=== PATIENT | female | born 1940 | race Hispanic/Latino ===

== ENCOUNTER 2017-06-02 12:57 | Outpatient (CLI) | payer MEDICARE ==
--- NOTE | 2017-06-02 16:22 | CT ---
CT ABDOMEN AND PELVIS NONCONTRAST: Date: 06/02/17 HISTORY: Kidney stone. FINDINGS: No comparison. Each renal collecting system and ureter are decompressed. An oval 0.5 cm calculus is present within a nondilated stas at the posterior aspect of the right kidney. Other calcifications associated with each kidney are favored to be arterial in origin. Urinary bladder is incompletely distended. Lack of contrast limits evaluation for other abnormalities. Liver is diffusely hypodense. There is p rominent calcification throughout the arterial structures. Degenerative changes involve lumbar spine . 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 Diverticula arise from the colon wit hout adjacent inflammation. IMPRESSION: 1. Nonobstructing 5 mm left renal calculus. 2. Hepatic steatosis. 3. Atherosclerosis. POS: [facility]
== END 2017-06-02 12:58 | disposition home or self-care (01) ==
LOC: SCSCT 12:57
PROVIDERS: ATTEND Urology
DX: N20.0 Calculus of kidney (principal); K76.0 Fatty (change of) liver, not elsewhere classified; I70.90 Unspecified atherosclerosis; Z86.19 Personal history of other infectious and parasitic diseases
CPT/HCPCS: 74176

== ENCOUNTER 2018-01-23 11:15 | Outpatient (CLI) | payer MEDICARE ==
--- NOTE | 2018-01-23 13:52 | ULT ---
BILATERAL RENAL ULTRASOUND COMPLETE: HISTORY: A 77-year-old female with a history of renal calculi. COMPARISON: CT from 06/02/2017. FINDINGS: The right kidney measures 12.2 x 4.3 x 4.2 cm. The left kidney measures 11.4 x 5.2 x 5.9 cm. No renal hydronephrosis. No perinephric process. The bladder is unremarkable. There is a 0.6 x 1.2 x 1.4 cm area of calcification in the right lower pole, which, based on the prior CT scan, probably represents a prominent renal vascular calcification. Two foci of calcifications are noted in the lef t kidney, one in the mid kidney measuring 0.5 x 0.6 cm and in the upper portion of the left kidney, 0 .7 x 1 cm. IMPRESSION: 1. No renal hydronephrosis. 2. Calcific foci in both kidneys. 3. Prominent renal vascular calcifications are noted on the prior CT, which may well account for kingsley e or most of these calcific foci within both kidneys. 4. Unremarkable bladder. POS: [facility]
== END 2018-01-23 11:16 | disposition home or self-care (01) ==
LOC: SCSULT 11:15
PROVIDERS: ATTEND Urology
DX: N20.0 Calculus of kidney (principal); N39.46 Mixed incontinence; R93.421 Abnormal radiologic findings on diagnostic imaging of right kidney; R93.422 Abnormal radiologic findings on diagnostic imaging of left kidney
CPT/HCPCS: 76770

== ENCOUNTER 2018-02-20 11:03 | Outpatient (CLI) | payer MEDICARE ==
--- NOTE | 2018-02-20 13:35 | CT ---
ABDOMEN CT WITHOUT CONTRAST PELVIC CT WITHOUT CONTRAST: Date: 02/20/18 COMPARISON: 06/02/17. TECHNIQUE: Abdomen and pelvic CT performed without IV or oral contrast. Coronal reformatted images are submitted for interpretation. FINDINGS: ABDOMEN CT: Lung bases are clear. There are coronary artery calcifications. Heart size is normal. No pericardial fluid. Visualized aorta has an overall normal caliber. There is atherosclerosis. No periaortic fat st randing. Limited evaluation of the solid organs by the lack of IV contrast. Hypoattenuation of the liver sugge sts hepatic steatosis. Grossly, the remaining solid organs are unremarkable. Gallbladder is unremarkable. No gastrohepatic, retrocrural, or periportal lymphadenopathy. No mesenteric mass, lymphadenopathy, free air, or free fluid. Limited evaluation of the alimentary canal due to lack of oral contrast. No evidence of small bowel o bstruction. Ileocecal junction is normal. Normal caliber appendix. Scattered fecal material and diver ticula throughout the colon. No evidence of obstruction or acute inflammation of the colon. Bilaterally, no evidence of obstructing calculi. There are vascular calcifications and parenchymal ca lcifications noted in the kidneys. Bilaterally, no evidence of hydronephrosis or significant perineph manuel fat stranding. Bilateral ureters have a normal caliber. No hydroureter, periureteral fat strandin g, or ureterolithiasis. PELVIC CT: No acute abnormality in the pelvis. Uterus and adnexal structures are unremarkable. Prosthetic device in the upper vaginal canal is again noted. No lytic or blastic lesions of the osseous structures. IMPRESSION: 1. No evidence of obstructive uropathy. 2. Stable parenchymal calcification in the left kidney. Calcification measure 5.0 mm. POS: [facility]
== END 2018-02-20 11:04 | disposition home or self-care (01) ==
LOC: SCSCT 11:03
PROVIDERS: ATTEND Urology
DX: N20.0 Calculus of kidney (principal); N28.89 Other specified disorders of kidney and ureter
CPT/HCPCS: 74176

== ENCOUNTER 2018-06-25 14:52 | Outpatient (CLI) | payer MEDICARE ==
--- NOTE | 2018-06-25 16:14 | MMO ---
BILATERAL SCREENING MAMMOGRAM: DATE: 06/25/18 HISTORY: 77-year-old female for screening mammography. COMPARISON: 05/17/17, 01/29/16, 07/21/15, and 01/26/15. FINDINGS: Bilateral MLO and CC views of the breasts show scattered fibroglandular breast tissue. Benign-appeari ng calcifications are seen in both breasts. There is no evidence of suspicious mass, suspicious clust er of microcalcifications, or area of architectural distortion. Interpretation of this mammogram was performed with the assistance of computer-aided detection. IMPRESSION: BIRADS 2: Benign Finding(s) Annual screening mammography is recommended. POS: [facility]
== END 2018-06-25 14:53 | disposition home or self-care (01) ==
LOC: SCSMAMMO 14:52
PROVIDERS: ATTEND Family Medicine
DX: Z12.31 Encounter for screening mammogram for malignant neoplasm of breast (principal)
CPT/HCPCS: 77067

== ENCOUNTER 2018-09-25 15:26 | Outpatient (CLI) | payer MEDICARE ==
--- NOTE | 2018-09-25 18:42 | RAD ---
ABDOMEN ONE VIEW: 09/25/18 HISTORY: N20.0 - renal stone. There is evidence for arterial vascular calcification including bilateral renal vascular calcificatio ns. Small faint stones certainly cannot be excluded on this study. There are some vascular calcificat ions in the pelvis. IMPRESSION: Prominent vascular calcifications including renal vascular calcifications. There is one faint opacity overlying the left kidney which could represent a faint calculus although difficult to say with cert ainty because of the extensive renal vascular calcifications. POS: [facility]
== END 2018-09-25 15:27 | disposition home or self-care (01) ==
LOC: SCSRAD 15:26
PROVIDERS: ATTEND Urology
DX: N20.0 Calculus of kidney (principal); N28.89 Other specified disorders of kidney and ureter
CPT/HCPCS: 74018

== ENCOUNTER 2019-01-14 13:35 | Outpatient (CLI) | payer MEDICARE ==
--- NOTE | 2019-01-14 14:52 | BD ---
BONE DENSITOMETRY USING DEXA: HISTORY: Postmenopausal screening for osteoporosis. FINDINGS: Lumbar Spine: BMD (g/cm2) L1 0.806 T-Score: -1.7 Z-Score: 0.5 L2 0.843 T-Score: -1.7 Z-Score: 0.8 L3 0.868 T-Score: -2.0 Z-Score: 0.6 L4 0.829 T-Score: -2.1 Z-Score: 0.5 L1-L4 0.837 T-Score: -1.9 Z-Score: 0.6 Femoral Neck: 0.762 T-Score: -0.8 Z-Score: 1.2 Total Femur: 0.938 T-Score: 0.0 Z-Score: 1.7 The 10-year fracture risk for a major osteoporotic fracture is 5.2% and for a hip fracture is 0.7%. Impression: Osteopenia. POS: [facility]
== END 2019-01-14 13:36 | disposition home or self-care (01) ==
LOC: BICMAMMO 13:35
PROVIDERS: ATTEND Internal Medicine Rheumatology
DX: M81.0 Age-related osteoporosis without current pathological fracture (principal); M85.89 Other specified disorders of bone density and structure, multiple sites
CPT/HCPCS: 77080

== ENCOUNTER 2019-09-26 12:59 | Outpatient (CLI) | payer MEDICARE ==
--- NOTE | 2019-09-26 14:06 | ULT ---
ULTRASOUND RETROPERITONEUM COMPLETE: (RENAL) 09/26/2019 HISTORY: A 78-year-old female with calculus of kidney. FINDINGS: Right kidney: 12.5 x 6 x 5.5 cm Left kidney: 11.5 x 5 x 5 cm No hydronephrosis bilaterally. No moderate-sized or large solid or cystic renal lesion identified. An approximately 10 mm hyperechoic focus in the left renal lower pole is probably a small calculus. There are at least two additional punctate echogenic foci, one at the right upper pole at approximate ly 0.5 cm and one in the right lower pole at approximately 0.5 cm. These may or may not represent sukumar culi. The bladder arango are thin and normal. Pre-void bladder volume is 240 mL. IMPRESSION: 1. No hydronephrosis. 2. At least one left renal lower pole calculus. 3. For additional calculi, a noncontrast CT would be much more accurate than ultrasound. XIAO Lebron POS: [facility]
--- NOTE | 2019-09-26 14:07 | RAD ---
ABDOMEN 1 VIEW: HISTORY: Followup kidney stones. FINDINGS: There appears to be fairly extensive bilateral renal arteriovascular calcifications. It would be dif ficult to exclude a small calculus. IMPRESSION: Bilateral renal arteriovascular calcifications. No overt calculus, although small calculi are certai nly to be not visualized. POS: [facility]
[2019-09-26 16:19] LABS: Hemoglobin A1c 9.5 % (4.0-6.0)
[2019-09-26 16:24] LABS: Anion Gap 9 mmol/L (10-20); BUN (Urea Nitrogen) 35 mg/dL (9.8-20.1); Calc. Creatinine Clearance 0 mL/min (70-130); Carbon Dioxide 32 mmol/L (23-31); Chloride 102 mmol/L (98-107); Estimated GFR-MDRD 38; Glucose 146 mg/dL (83-110); Potassium 5.2 mmol/L (3.5-5.1); Sodium 138 mmol/L (136-145)
== END 2019-09-26 13:00 | disposition home or self-care (01) ==
LOC: SCSULT 12:59
PROVIDERS: ATTEND Urology
DX: N20.0 Calculus of kidney (principal); E11.9 Type 2 diabetes mellitus without complications; N39.46 Mixed incontinence; I70.1 Atherosclerosis of renal artery
CPT/HCPCS: 36415; 74018; 76770; 80048; 83036

== ENCOUNTER 2021-08-12 14:44 | Outpatient (CLI) | payer MEDICARE | END 2021-08-12 14:45 | disposition home or self-care (01) | LOC: SCSRAD 14:44 | PROVIDERS: ATTEND Urology | DX: N20.0 Calculus of kidney (principal); N39.46 Mixed incontinence; N18.30 Chronic kidney disease, stage 3 unspecified | CPT/HCPCS: 36415; 74018; 80048; 83036 ==

== ENCOUNTER 2021-09-21 23:28 | Inpatient (IN) | payer MEDICARE ==
[2021-09-21] MEDS ORDERED: niCARdipine 25 MG/10 ML VIAL ONE (23:41)
[2021-09-22] MEDS ORDERED: SUGAMMADEX SODIUM 200 MG/2 ML VIAL ONE (00:26)
[2021-09-22] MEDS ORDERED: Fentanyl 100 MCG/2 ML VIAL ONE (00:26)
[2021-09-22] MEDS ORDERED: Heparin 10,000 UNITS/ 10 ML VIAL ONE (00:36)
[2021-09-22] MEDS ORDERED: Rocuronium Bromide 10 MG/ML (10ML VIAL) ONE (00:58)
[2021-09-22] MEDS ORDERED: Lidocaine 1% PF 5 ML VIAL ONE (00:58)
[2021-09-22] MEDS ORDERED: PHENYLEPHRINE-NS 100 MCG/ML 10 ML SYRINGE ONE (00:58)
[2021-09-22] MEDS ORDERED: Ondansetron PF 4 MG/2 ML Vial ONE (00:58)
[2021-09-22] MEDS ORDERED: Dexamethasone 20 MG/5 ML VIAL ONE (00:58)
[2021-09-22] MEDS ORDERED: PROPOFOL 200 MG/20 ML VIAL ONE (00:58)
[2021-09-22] MEDS ORDERED: hydrALAZINE 20 MG/ML VIAL SLOW IVP PRN (00:59)
[2021-09-22] MEDS ORDERED: Milk Of Magnesia 30 ML UDCUP PO PRN (00:59)
[2021-09-22] MEDS ORDERED: Labetalol HCl 100 MG/20 ML VIAL SLOW IVP PRN (00:59)
[2021-09-22] MEDS ORDERED: niCARdipine 25 MG in Sodium Chloride 0.9% 250 ML 250 ML IVPB PRN (00:59)
[2021-09-22] MEDS: Sodium Chloride 0.9% 1,000 ML IV SCH ×3 (03:36→21:05)
[2021-09-22] MEDS ORDERED: Iopamidol 370 76% 100 ML VIAL ONE (09:28)
[2021-09-22] MEDS: Communication Order-Pharmacy FS SCH (10:54)
[2021-09-22] MEDS ORDERED: Dextrose 5% in Water 1,000 ML IV PRN (11:12)
[2021-09-22] MEDS ORDERED: Dextrose 50% Abboject 50 ML SYRINGE SLOW IVP PRN (11:12)
[2021-09-22 14:01] LABS: SARS-CoV-2 NAA Rapid Test Not Detected (NotDetected)
[2021-09-22] MEDS: HumaLOG 300 UNITS/3 ML VIAL SC PRN (16:45)
[2021-09-22] MEDS: Pantoprazole 40 MG VIAL IVP SCH (21:05)
[2021-09-22] MEDS: Atorvastatin Calcium 40 MG TAB PO SCH (21:06)
[2021-09-22] MEDS: Latanoprost 0.005% Ophth Soln 2.5 ml Bottle EA EYE SCH (21:10)
[2021-09-23] MEDS: HumaLOG 300 UNITS/3 ML VIAL SC PRN ×4 (00:23→21:01)
[2021-09-23] MEDS: Communication Order-Pharmacy FS SCH (03:29)
[2021-09-23 03:36] LABS: #Lymphocytes 3.1 thou/uL (1.20-3.40); #Monocytes 1.4 thou/uL (0.11-0.59); #Neutrophils 11.5 thou/uL (1.40-6.50); %Basophils 0.1 % (0.0-1.0); %Eosinophils 0.1 % (0.0-10.0); %Lymphocytes 19.5 % (21.0-51.0); %Monocytes 8.8 % (0.0-10.0); %Neutrophils 71.6 % (42.0-75.0); Hemoglobin 12.1 g/dL (12.0-16.0); Mean Corpuscular HGB CONC 33.1 g/dL (32.0-36.0); Mean Corpuscular Hemoglobin 29.9 pg (27.0-31.0); Mean Corpuscular Volume 90.3 fL (78.0-98.0); Mean Platelet Volume 7.6 fL (7.4-10.4); Platelet Count 214 thou/uL (130-400); RBC Distribution Width 13.2 % (11.5-14.5); Red Blood Cell (RBC) Count 4.04 mill/uL (4.20-5.40); White Blood Cell (WBC) Count 16.1 thou/uL (4.8-10.8)
[2021-09-23 03:56] LABS: ALT (SGPT) 12 U/L (8-55); AST (SGOT) 25 U/L (5-34); Albumin 3.6 g/dL (3.4-4.8); Alkaline Phosphatase 98 U/L (40-110); Anion Gap 15 mmol/L (10-20); BUN (Urea Nitrogen) 23 mg/dL (9.8-20.1); Bilirubin, Total 0.6 mg/dL (0.2-1.2); Calc. Creatinine Clearance 43 mL/min (70-130); Calcium 9.1 mg/dL (7.8-10.44); Carbon Dioxide 22 mmol/L (23-31); Cardiac Risk 3.9 (Less than 4.5); Chloride 109 mmol/L (98-107); Cholesterol 184 mg/dl (< 200 Desired); Globulin 3.2 g/dL (2.4-3.5); Glucose 270 mg/dL (83-110); HDL Cholesterol 47 mg/dL (>60 Neg Risk); LDL Cholesterol, Calculated 116 mg/dL; Protein, Total 6.8 g/dL (5.8-8.1); Sodium 141 mmol/L (136-145); Triglycerides 106 mg/dL (Less than 150)
[2021-09-23] MEDS: Pantoprazole 40 MG VIAL IVP SCH ×2 (08:45→21:01)
[2021-09-23] MEDS: Aspirin 300 MG Suppository PR SCH (08:45)
[2021-09-23] MEDS: Latanoprost 0.005% Ophth Soln 2.5 ml Bottle EA EYE SCH ×2 (08:55→20:56)
[2021-09-23] MEDS: Aspirin 325 mg Enteric Coated Tablet PO SCH (09:43)
[2021-09-23] MEDS: Sodium Chloride 0.9% 1,000 ML IV SCH (09:44)
[2021-09-23] MEDS ORDERED: Lactated Ringer's 500 ML IV SCH ×2 (11:15→11:30)
[2021-09-23] MEDS ORDERED: Lantus 1000 UNITS/10 ML VIAL SC SCH (11:30)
[2021-09-23] MEDS: Atorvastatin Calcium 40 MG TAB PO SCH (20:56)
[2021-09-24] MEDS: Acetaminophen 325 MG TAB PO PRN (04:23)
[2021-09-24] MEDS: HumaLOG 300 UNITS/3 ML VIAL SC PRN ×4 (05:01→23:49)
[2021-09-24] MEDS: Latanoprost 0.005% Ophth Soln 2.5 ml Bottle EA EYE SCH ×2 (08:22→20:03)
[2021-09-24] MEDS: Aspirin 325 mg Enteric Coated Tablet PO SCH (08:23)
[2021-09-24] MEDS: Pantoprazole 40 MG VIAL IVP SCH ×2 (08:23→20:02)
[2021-09-24] MEDS: Aspirin 300 MG Suppository PR SCH (08:24)
[2021-09-24] MEDS ORDERED: Lantus 1000 UNITS/10 ML VIAL SC SCH (09:00)
[2021-09-24] MEDS ORDERED: VANCOMYCIN IVPB PRN (09:30)
[2021-09-24 10:09] LABS: Bacteria/HPF 4+ HPF (None Seen); Bilirubin Negative (Negative); Blood, Urine 1+ (Negative); Clarity Turbid (Clear); Glucose, Urine (Dipstick) 300 mg/dL (Negative); Ketone, Urine 10 mg/dL (Negative); Leukocyte 500 Leu/uL (Negative); Nitrite Negative (Negative); Protein, Urine (Dipstick) 70 mg/dL (Neg-Trace); RBC/HPF 0-3 HPF (0-3); Specific Gravity, Urine 1.018 (1.002-1.036); Urobilinogen Normal mg/dL (Less than 2); WBC/HPF Greater than 50 HPF (0-3)
[2021-09-24] MEDS: Vancomycin 1 GM in Premix Bag 1 BAG IVPB SCH (10:20)
[2021-09-24 10:28] LABS: Urine Culture Reflex No No
[2021-09-24] MEDS: Cefepime 1 GM in Sodium Chloride 0.9% 100 ML IVPB SCH ×2 (10:49→20:03)
[2021-09-24] MEDS ORDERED: Furosemide 40 MG/4 ML VIAL ONE (14:43)
[2021-09-24] MEDS ORDERED: Furosemide 40 MG/4 ML VIAL SLOW IVP SCH (14:45)
[2021-09-24] MEDS: Atorvastatin Calcium 40 MG TAB PO SCH (20:03)
[2021-09-24] MEDS ORDERED: HumaLOG 300 UNITS/3 ML VIAL SC PRN (22:45)
[2021-09-25] MEDS: HumaLOG 300 UNITS/3 ML VIAL SC PRN ×4 (04:26→20:03)
[2021-09-25 05:16] LABS: #Lymphocytes 2.3 thou/uL (1.20-3.40); #Monocytes 1.4 thou/uL (0.11-0.59); %Basophils 0.1 % (0.0-1.0); %Eosinophils 0.2 % (0.0-10.0); %Lymphocytes 12.9 % (21.0-51.0); %Monocytes 7.9 % (0.0-10.0); Hemoglobin 13.5 g/dL (12.0-16.0); Mean Corpuscular HGB CONC 32.2 g/dL (32.0-36.0); Mean Corpuscular Hemoglobin 29.6 pg (27.0-31.0); Mean Corpuscular Volume 91.8 fL (78.0-98.0); Mean Platelet Volume 8.6 fL (7.4-10.4); Platelet Count 201 thou/uL (130-400); RBC Distribution Width 13.3 % (11.5-14.5); Red Blood Cell (RBC) Count 4.57 mill/uL (4.20-5.40); White Blood Cell (WBC) Count 17.7 thou/uL (4.8-10.8)
[2021-09-25 05:36] LABS: ALT (SGPT) 19 U/L (8-55); AST (SGOT) 56 U/L (5-34); Albumin 3.4 g/dL (3.4-4.8); Alkaline Phosphatase 110 U/L (40-110); Anion Gap 16 mmol/L (10-20); BUN (Urea Nitrogen) 53 mg/dL (9.8-20.1); Bilirubin, Total 1.1 mg/dL (0.2-1.2); Calc. Creatinine Clearance 30 mL/min (70-130); Calcium 9.7 mg/dL (7.8-10.44); Carbon Dioxide 20 mmol/L (23-31); Chloride 110 mmol/L (98-107); Glucose 432 mg/dL (83-110); Magnesium 1.9 mg/dL (1.6-2.6); Potassium 3.9 mmol/L (3.5-5.1); Protein, Total 7.4 g/dL (5.8-8.1); Sodium 142 mmol/L (136-145)
[2021-09-25 05:39] LABS: Phosphorus 1.7 mg/dL (2.3-4.7)
[2021-09-25] MEDS ORDERED: Potassium Phosphate 30 MMOL in Sodium Chloride 0.9% 250 ML 250 ML IVPB SCH (08:30)
[2021-09-25] MEDS ORDERED: Lantus 1000 UNITS/10 ML VIAL SC SCH ×2 (09:00→10:00)
[2021-09-25] MEDS ORDERED: FLU VACC QS2021-22(65YR UP)/PF 240 MCG/0.7 ML SYRINGE IM ONE (09:00)
[2021-09-25] MEDS: Latanoprost 0.005% Ophth Soln 2.5 ml Bottle EA EYE SCH ×2 (10:01→21:19)
[2021-09-25] MEDS: Pantoprazole 40 MG VIAL IVP SCH ×2 (10:01→21:19)
[2021-09-25] MEDS: Aspirin 300 MG Suppository PR SCH (10:03)
[2021-09-25] MEDS: Cefepime 1 GM in Sodium Chloride 0.9% 100 ML IVPB SCH ×2 (10:03→21:19)
[2021-09-25] MEDS: Acetaminophen 325 MG TAB PO PRN (10:14)
[2021-09-25] MEDS: Aspirin 325 mg Enteric Coated Tablet PO SCH (10:14)
[2021-09-25] MEDS: Vancomycin 1 GM in Premix Bag 1 BAG IVPB SCH (10:28)
[2021-09-25] MEDS ORDERED: Vancomycin 1 GM in Premix Bag 1 BAG IVPB SCH (13:00)
[2021-09-25] MEDS ORDERED: Succinylcholine 200 MG/10 ml SYRINGE FS ONE (15:00)
[2021-09-25 15:10] LABS: Hemoglobin 12.9 g/dL (12.0-16.0); Platelet Count 202 thou/uL (130-400)
[2021-09-25 15:25] LABS: CKMB 11.5 ng/mL (0-6.6)
[2021-09-25] MEDS: Heparin 25,000 units/D5W 500 ML IVPB SCH (16:59)
[2021-09-25 18:33] LABS: Critical Call Chem Troponin I RESULT DECREASING; Troponin I 17.442 ng/mL (< 0.028)
[2021-09-25] MEDS: Atorvastatin Calcium 40 MG TAB PO SCH (21:19)
[2021-09-25 23:40] LABS: Critical Call Chem Troponin I RESULT DECREASING; Troponin I 17.044 ng/mL (< 0.028)
[2021-09-25] MEDS: Heparin 10,000 UNITS/ 10 ML VIAL SLOW IVP SCH (23:40)
[2021-09-26] MEDS: HumaLOG 300 UNITS/3 ML VIAL SC PRN ×6 (00:37→20:13)
[2021-09-26 06:14] LABS: #Lymphocytes 2.1 thou/uL (1.20-3.40); #Monocytes 1.1 thou/uL (0.11-0.59); #Neutrophils 11.9 thou/uL (1.40-6.50); %Basophils 0.2 % (0.0-1.0); %Eosinophils 0.2 % (0.0-10.0); %Monocytes 7.1 % (0.0-10.0); %Neutrophils 78.4 % (42.0-75.0); Hemoglobin 13.5 g/dL (12.0-16.0); Mean Corpuscular HGB CONC 31.6 g/dL (32.0-36.0); Mean Corpuscular Hemoglobin 30.3 pg (27.0-31.0); Mean Corpuscular Volume 95.9 fL (78.0-98.0); Mean Platelet Volume 9.1 fL (7.4-10.4); Platelet Count 217 thou/uL (130-400); RBC Distribution Width 13.6 % (11.5-14.5); Red Blood Cell (RBC) Count 4.45 mill/uL (4.20-5.40); White Blood Cell (WBC) Count 15.1 thou/uL (4.8-10.8)
[2021-09-26] MEDS: Heparin 10,000 UNITS/ 10 ML VIAL SLOW IVP SCH (06:31)
[2021-09-26 06:34] LABS: ALT (SGPT) 19 U/L (8-55); AST (SGOT) 31 U/L (5-34); Albumin 3.2 g/dL (3.4-4.8); Alkaline Phosphatase 103 U/L (40-110); Anion Gap 18 mmol/L (10-20); BUN (Urea Nitrogen) 65 mg/dL (9.8-20.1); Bilirubin, Total 0.6 mg/dL (0.2-1.2); Calc. Creatinine Clearance 30 mL/min (70-130); Calcium 9.3 mg/dL (7.8-10.44); Carbon Dioxide 18 mmol/L (23-31); Chloride 113 mmol/L (98-107); Globulin 3.7 g/dL (2.4-3.5); Glucose 402 mg/dL (83-110); Magnesium 1.9 mg/dL (1.6-2.6); Potassium 3.9 mmol/L (3.5-5.1); Protein, Total 6.9 g/dL (5.8-8.1); Sodium 145 mmol/L (136-145)
[2021-09-26] MEDS: Pantoprazole 40 MG VIAL IVP SCH ×2 (08:43→20:02)
[2021-09-26] MEDS: Cefepime 1 GM in Sodium Chloride 0.9% 100 ML IVPB SCH ×2 (08:43→20:02)
[2021-09-26] MEDS: Aspirin 325 mg Enteric Coated Tablet PO SCH (08:43)
[2021-09-26] MEDS: Latanoprost 0.005% Ophth Soln 2.5 ml Bottle EA EYE SCH ×2 (08:44→20:03)
[2021-09-26] MEDS: Lantus 1000 UNITS/10 ML VIAL SC SCH (08:44)
[2021-09-26] MEDS: Aspirin 300 MG Suppository PR SCH (09:00)
[2021-09-26 10:53] LABS: Vancomycin, Trough 14.6 ug/mL
[2021-09-26] MEDS ORDERED: Vancomycin 1 GM in Premix Bag 1 BAG IVPB SCH ×2 (11:15→12:00)
[2021-09-26] MEDS: Heparin 25,000 units/D5W 500 ML IVPB SCH (17:19)
[2021-09-26] MEDS: Atorvastatin Calcium 40 MG TAB PO SCH (20:02)
[2021-09-27 01:51] LABS: #Basophils 0.1 thou/uL (0.0-0.2); #Lymphocytes 2.9 thou/uL (1.20-3.40); #Monocytes 1.5 thou/uL (0.11-0.59); #Neutrophils 12.5 thou/uL (1.40-6.50); %Basophils 0.3 % (0.0-1.0); %Eosinophils 0.2 % (0.0-10.0); %Lymphocytes 17.1 % (21.0-51.0); %Monocytes 8.7 % (0.0-10.0); %Neutrophils 73.6 % (42.0-75.0); Hemoglobin 13.5 g/dL (12.0-16.0); Mean Corpuscular HGB CONC 33.2 g/dL (32.0-36.0); Mean Corpuscular Hemoglobin 30.6 pg (27.0-31.0); Mean Corpuscular Volume 92.1 fL (78.0-98.0); Mean Platelet Volume 9.1 fL (7.4-10.4); Platelet Count 235 thou/uL (130-400); RBC Distribution Width 13.3 % (11.5-14.5); Red Blood Cell (RBC) Count 4.41 mill/uL (4.20-5.40); White Blood Cell (WBC) Count 16.9 thou/uL (4.8-10.8)
[2021-09-27] MEDS: HumaLOG 300 UNITS/3 ML VIAL SC PRN ×3 (02:00→12:28)
[2021-09-27] MEDS ORDERED: Lorazepam 2 MG/ML VIAL ONE (02:16)
[2021-09-27] MEDS ORDERED: Morphine 2 MG/ML VIAL SLOW IVP PRN (02:30)
[2021-09-27] MEDS ORDERED: Propofol 1,000 MG/100 ML VIAL IV PRN (02:30)
[2021-09-27] MEDS ORDERED: Propofol BOLUS 1,000 MG/100 ML VIAL IV PRN (02:30)
[2021-09-27] MEDS ORDERED: Lorazepam 2 MG/ML VIAL SLOW IVP PRN (02:30)
[2021-09-27] MEDS ORDERED: Fentanyl BOLUS 250 ML IVPB PRN (02:30)
[2021-09-27] MEDS ORDERED: Fentanyl CADD 100 ML IV SCH (02:30)
[2021-09-27] MEDS ORDERED: DISCONTINUE PREVIOUS NARCOTIC PAIN MEDICATIONS AND BENZODIAZEPINES FS SCH (02:30)
[2021-09-27] MEDS ORDERED: Norepinephrine 8 MG/0.9% NS 250 ML ONE (02:32)
[2021-09-27] MEDS ORDERED: Norepinephrine 8 MG/0.9% NS 250 ML IVPB SCH (02:45)
[2021-09-27] MEDS ORDERED: Sodium Chloride 0.9% 500 ML IVPB SCH (02:45)
[2021-09-27] MEDS ORDERED: Succinylcholine 200 MG/10 ml SYRINGE FS SCH (03:15)
[2021-09-27 03:22] LABS: Actual Bicarbonate (HCO3a) 19.7 mEq/L (22-28); Base Excess (BEa) -3.5 mEq/L (-2.0 to +3.0); CO2 Tension 30.3 mmHg (35.0-45.0); Calcium, Ionized (arterial) 1.13 mmol/L (1.12-1.30); Carboxyhemoglobin (COHb) 0.3 gm% (0.0-3.0); Hemoglobin (Hb) 13.2 g/dL (12.0-16.0); O2 Tension (PaO2), arterial 168.6 mmHg (> 70.0); Potassium - ABG Lab 3.64 mmol/L (3.70-5.30); pH, Arterial 7.43 (7.35-7.45)
[2021-09-27 03:25] LABS: ALV-art Gradient 506.525 mmHg (0-20); Puncture Site RBA
[2021-09-27 04:10] LABS: #Lymphocytes 2.8 thou/uL (1.20-3.40); #Monocytes 1.4 thou/uL (0.11-0.59); #Neutrophils 14.4 thou/uL (1.40-6.50); %Basophils 0.2 % (0.0-1.0); %Eosinophils 0.1 % (0.0-10.0); %Lymphocytes 15.2 % (21.0-51.0); %Monocytes 7.3 % (0.0-10.0); %Neutrophils 77.2 % (42.0-75.0); Hemoglobin 12.4 g/dL (12.0-16.0); Mean Corpuscular HGB CONC 31.9 g/dL (32.0-36.0); Mean Corpuscular Hemoglobin 29.7 pg (27.0-31.0); Mean Platelet Volume 9.6 fL (7.4-10.4); Platelet Count 300 thou/uL (130-400); RBC Distribution Width 13.5 % (11.5-14.5); Red Blood Cell (RBC) Count 4.18 mill/uL (4.20-5.40); White Blood Cell (WBC) Count 18.7 thou/uL (4.8-10.8)
[2021-09-27 04:31] LABS: ALT (SGPT) 20 U/L (8-55); AST (SGOT) 32 U/L (5-34); Albumin 2.9 g/dL (3.4-4.8); Alkaline Phosphatase 97 U/L (40-110); Anion Gap 16 mmol/L (10-20); BUN (Urea Nitrogen) 81 mg/dL (9.8-20.1); Bilirubin, Total 0.6 mg/dL (0.2-1.2); Calc. Creatinine Clearance 24 mL/min (70-130); Calcium 8.4 mg/dL (7.8-10.44); Carbon Dioxide 19 mmol/L (23-31); Chloride 113 mmol/L (98-107); Globulin 3.4 g/dL (2.4-3.5); Glucose 480 mg/dL (83-110); Potassium 3.7 mmol/L (3.5-5.1); Protein, Total 6.3 g/dL (5.8-8.1); Sodium 144 mmol/L (136-145)
[2021-09-27 06:34] VITALS: BMI 30.4
[2021-09-27] MEDS ORDERED: Piperacillin/Tazobactam 3.375 GM in Sodium Chloride 0.9% 100 ML IVPB SCH ×3 (06:45→21:00)
[2021-09-27] MEDS: Aspirin 300 MG Suppository PR SCH (07:45)
[2021-09-27] MEDS: Acetaminophen 325 MG TAB PO PRN (07:45)
[2021-09-27] MEDS: Pantoprazole 40 MG VIAL IVP SCH (07:46)
[2021-09-27] MEDS: Latanoprost 0.005% Ophth Soln 2.5 ml Bottle EA EYE SCH (08:03)
[2021-09-27] MEDS: Lantus 1000 UNITS/10 ML VIAL SC SCH (08:05)
[2021-09-27] MEDS ORDERED: Aspirin 325 MG TAB PER TUBE SCH (09:00)
[2021-09-27 09:15] VITALS: TEMP 101.9
[2021-09-27 14:33] LABS: Vancomycin, Random 17.4 ug/mL (See Comment)
[2021-09-27 14:54] VITALS: BP 124/88
[2021-09-27] MEDS ORDERED: Vancomycin HCl 750 MG in Sodium Chloride 0.9% 250 ML 250 ML IVPB SCH (15:00)
== END 2021-09-27 17:36 | disposition hospice, inpatient (51) | DRG 23 ==
LOC: ERS 23:28 → SDC/OP 09-22 00:54 → CCU 09-22 00:59 → NEURO 09-25 02:09 → CCU 09-25 16:46
PROVIDERS: ADMIT Neurological Surgery; ATTEND Internal Medicine
PROC: 03CG3ZZ Extirpation of Matter from Intracranial Artery, Percutaneous Approach (ICD-10-PCS; principal; 2021-09-22)
PROC: B31R1ZZ Fluoroscopy of Intracranial Arteries using Low Osmolar Contrast (ICD-10-PCS; 2021-09-22)
PROC: 3E033XZ Introduction of Vasopressor into Peripheral Vein, Percutaneous Approach (ICD-10-PCS; 2021-09-22)
PROC: 0BH17EZ Insertion of Endotracheal Airway into Trachea, Via Natural or Artificial Opening (ICD-10-PCS; 2021-09-27)
PROC: 5A1935Z Respiratory Ventilation, Less than 24 Consecutive Hours (ICD-10-PCS; 2021-09-27)
DX: I63.312 Cerebral infarction due to thrombosis of left middle cerebral artery (principal); R29.731 NIHSS score 31; Z66 Do not resuscitate; Z51.5 Encounter for palliative care; Z20.822 Contact with and (suspected) exposure to COVID-19; J96.01 Acute respiratory failure with hypoxia; I21.02 ST elevation (STEMI) myocardial infarction involving left anterior descending coronary artery; J69.0 Pneumonitis due to inhalation of food and vomit; N39.0 Urinary tract infection, site not specified; N17.9 Acute kidney failure, unspecified; I42.0 Dilated cardiomyopathy; I51.81 Takotsubo syndrome; G93.49 Other encephalopathy; G81.91 Hemiplegia, unspecified affecting right dominant side; Z92.82 Status post administration of tPA (rtPA) in a different facility within the last 24 hours prior to admission to current facility; E11.40 Type 2 diabetes mellitus with diabetic neuropathy, unspecified; E78.5 Hyperlipidemia, unspecified; E78.00 Pure hypercholesterolemia, unspecified; R29.810 Facial weakness; R47.1 Dysarthria and anarthria; R47.01 Aphasia; R13.10 Dysphagia, unspecified; I10 Essential (primary) hypertension; Z82.49 Family history of ischemic heart disease and other diseases of the circulatory system; Z78.1 Physical restraint status; Z98.42 Cataract extraction status, left eye; Z98.41 Cataract extraction status, right eye; Z87.891 Personal history of nicotine dependence; Z79.899 Other long term (current) drug therapy; Z79.82 Long term (current) use of aspirin; Z79.4 Long term (current) use of insulin; Z98.890 Other specified postprocedural states; Z83.3 Family history of diabetes mellitus; Z87.442 Personal history of urinary calculi; Z79.84 Long term (current) use of oral hypoglycemic drugs; Z87.440 Personal history of urinary (tract) infections
CPT/HCPCS: 36415; 36416; 36596; 36600; 70450; 70551; 71045; 80053; 80061; 80202; 81001; 82553; 82805; 83735; 83880; 84100; 84443; 84484; 85025; 85730; 87040; 93005; 93010; 93306; 94002; 95712; 95819; 95957; C1887; C9113; J0692; J1100; J1644; J1815; J1940; J2060; J2405; J2543; J2704; J3010; J3370; J3490; J7030; J7050; J7120; Q9967; U0002

== ENCOUNTER 2021-09-27 17:44 | Inpatient (IN) | payer OTHER ==
[2021-09-27] MEDS ORDERED: Senokot 8.6 MG TAB PO PRN (18:00)
[2021-09-27] MEDS ORDERED: Scopolamine 1.5 mg/72 hour Patch TOP PRN (18:00)
[2021-09-27] MEDS ORDERED: Acetaminophen 650 MG Suppository PR PRN (18:00)
[2021-09-27] MEDS ORDERED: Zolpidem Tartrate 5 MG TAB PO PRN (18:00)
[2021-09-27] MEDS ORDERED: Morphine 10 MG/0.5 ML ORAL SYRINGE SL PRN (18:00)
[2021-09-27] MEDS ORDERED: Loperamide HCl 2 MG CAP PO PRN (18:00)
[2021-09-27] MEDS ORDERED: Ondansetron PF 4 MG/2 ML Vial IVP PRN (18:00)
[2021-09-27] MEDS ORDERED: Milk Of Magnesia 30 ML UDCUP PO PRN (18:00)
[2021-09-27] MEDS ORDERED: Lorazepam 2 MG/ML VIAL SLOW IVP PRN ×2 (18:00→18:04)
[2021-09-27] MEDS ORDERED: Hyoscyamine Sulfate SL 0.125 mg Tablet SL PRN (18:00)
[2021-09-27] MEDS ORDERED: Haloperidol Lactate 5 MG/ML VIAL SLOW IVP PRN (18:00)
[2021-09-27] MEDS ORDERED: Ondansetron ODT 4 MG TAB PO PRN (18:00)
[2021-09-27] MEDS ORDERED: Promethazine HCl 25 MG SUPP PR PRN (18:00)
[2021-09-27] MEDS ORDERED: Morphine 4 MG/ML VIAL SLOW IVP PRN (18:03)
[2021-09-27] MEDS ORDERED: Lorazepam 2 MG/ML VIAL SLOW IVP SCH (18:15)
[2021-09-27] MEDS ORDERED: Morphine 4 MG/ML VIAL SLOW IVP SCH (18:15)
== END 2021-09-27 18:37 | disposition expired | DRG 951 ==
LOC: CCU 17:49
PROVIDERS: ADMIT Family Medicine; ATTEND Internal Medicine
DX: Z51.5 Encounter for palliative care (principal); J96.01 Acute respiratory failure with hypoxia; I63.9 Cerebral infarction, unspecified; I21.02 ST elevation (STEMI) myocardial infarction involving left anterior descending coronary artery; N17.9 Acute kidney failure, unspecified; Z66 Do not resuscitate; E11.69 Type 2 diabetes mellitus with other specified complication; I10 Essential (primary) hypertension; E78.5 Hyperlipidemia, unspecified; Z79.4 Long term (current) use of insulin; Z79.899 Other long term (current) drug therapy
CPT/HCPCS: J2060; J2270; J2405